=== PATIENT | female | born 1985 ===

== ENCOUNTER 2023-04-07 10:29 | Outpatient (CLI) | payer OTHER | END 2023-04-07 14:33 | disposition home or self-care (01) | LOC: MAMO-SONO 10:29 | PROVIDERS: ATTEND Surgery | DX: N60.11 Diffuse cystic mastopathy of right breast (principal); N60.12 Diffuse cystic mastopathy of left breast; Z12.31 Encounter for screening mammogram for malignant neoplasm of breast ==

== ENCOUNTER 2023-06-15 07:47 | Outpatient (CLI) | payer OTHER | END 2023-06-15 07:48 | disposition home or self-care (01) | LOC: NUCLEAR 07:47 | DX: R14.0 Abdominal distension (gaseous) (principal) ==

== ENCOUNTER 2024-04-11 10:32 | Outpatient (CLI) | payer OTHER | END 2024-04-11 10:49 | disposition home or self-care (01) | LOC: MAMO-SONO 10:32 | PROVIDERS: ATTEND Surgery | DX: N60.11 Diffuse cystic mastopathy of right breast (principal); N60.12 Diffuse cystic mastopathy of left breast; N83.201 Unspecified ovarian cyst, right side ==

== ENCOUNTER 2024-04-20 09:24 | Outpatient (CLI) | payer OTHER | END 2024-04-20 09:28 | disposition home or self-care (01) | LOC: MRI 09:24 | DX: S06.0X0A Concussion without loss of consciousness, initial encounter (principal); M54.2 Cervicalgia; M54.40 Lumbago with sciatica, unspecified side | CPT/HCPCS: 70553 ==